=== PATIENT | male | born 1965 | race Caucasian/White ===

== ENCOUNTER → 2016-10-05 | Outpatient (CLI) | payer OTHER ==
[~2016-10-05] MED LIST: AMBIEN10 MG PO; ANDROGEL1.25 GM TD; ANTI-GAS180 MG PO; ASPIR-TRIN325 M1 PO; ASPIRIN325 MG PO; Ambien PO; Benadryl IV; CALCIUM 500 MG1 EAC1 PO; CELEBREX200 MG PO; CELEXA20 MG PO; CLONAZEPAM1 MG PO; CO Q-1010 MG PO; CO Q-10200 MG PO; CRESTOR20 MG PO; DHEA 10 MG TAB1 EACH PO; DHEA25 MG PO; DIAZEPAM5 MG PO; DOLACET 5/5001 EACH PO; EXFORGE 5/321 TABLET PO; Ecotrin PO; FARXIGA10 MG PO; FLEXERIL10 MG PO; FLUOXETINE HCL20 M1 PO; Flexeril PO; HYDROCODON-ACE1 EAC7 PO; HYDROCODON-ACE1 EACH PO; INDOMETHACIN50 MG PO; KLONOPIN1 MG PO; KlonoPIN PO; LASIX40 MG PO; LEVOXYL125 MCG PO; LOVAZA1 GM PO; Levothroid,Synthroid PO; METFORMIN HCL500 MG PO; METOPROLOL SUCC50 MG PO; MULTIPLE VITAM1 EAC2 PO; MULTIVITAMIN1 EAC2 PO; NIASPAN1000 MG PO; NIASPAN500 MG PO; NITROSTAT0.4 MG SL; PLAVIX75 MG PO; PREVACID30 MG PO; Plavix PO; TRICOR145 MG PO; Theragran PO; Tricor PO; VASCEPA1 GM PO; Vicodin,Norco 5/325 PO; ZEGERID20 MG PO; ZESTRIL,PRINIV2.5 MG PO; ZESTRIL,PRINIVI40 MG PO; celeBREX PO; predniSONE PO
== END | disposition home or self-care (01) ==
LOC: NUC 09-27 10:00
DX: M25.551 Pain in right hip (principal); M25.552 Pain in left hip; M51.36 Other intervertebral disc degeneration, lumbar region; Z96.643 Presence of artificial hip joint, bilateral
CPT/HCPCS: 78315; A9503